=== PATIENT | female | born 2000 | race African-American/Black ===

== ENCOUNTER 2023-02-06 21:16 | Emergency (ER) | payer BC, SELFPAY ==
[2023-02-06 21:40] VITALS: BP 145/100; PULSE 116; RESP 20; TEMP 36.8; O2SAT 100
[2023-02-06 22:45] LABS: Appearance Urine Clear (Clear); Bacteria Urine None Seen /hpf; Bilirubin Urine Negative (Negative); Blood Urine 2+ (Negative); Color Urine Yellow (Yellow); Glucose Urine UA Negative (Negative); Ketones Urine Negative (Negative); Leukocyte Esterase Ur Negative LEU/UL (Negative); Nitrate Urine Negative (Negative); Non Pathogenic Casts 0-2; Protein Urine Trace mg/dL (Negative); RBC Urine 21-50 /hpf (0-2); Specific Grav Ur 1.019 (1.001-1.035); Squamous Epithelial Cell Urine Occasional /hpf (Few); WBC Urine 0-5 /hpf
[2023-02-06 22:47] LABS: Add Urine Microscopic? YES
--- NOTE | 2023-02-07 00:12 | ED.FEMALEGU ---
HPI - Female Genitourinary General Chief complaint: CHIP MUCKER Stated complaint: std check Time Seen by Provider: 02/06/23 23:48 Source: patient Mode of arrival: ambulatory Limitations: no limitations History of Present Illness HPI Narrative: This is a 22-year-old female who presents to the ED with chief complaint of possible exposure to STD that would have occurred 1 month ago. Patient reports that she had sexual intercourse with a male but does not have any confirmed infection. She states his friend told her that she needs to get tested. She expresses anxiety over this. She also has secondary complaint of a cyst to the left inner thigh that seems bigger than normal. Denies any fevers, chills, abdominal pain, urinary symptoms, vaginal discharge, vaginal pain, vaginal bleeding. Related Data Allergies Allergy/AdvReac Type Severity Reaction Status Date / Time No Known Allergies Allergy Verified 02/06/23 21:47 Review of Systems Review of Systems: All systems as dictated in HPI Exam Narrative: GENERAL: Well-appearing, well-nourished, and in no acute distress. HEAD: Normocephalic, atraumatic. EYES: PERRLA and EOMI. ENT: Nares clear, no rhinorrhea or epistaxis. Mucous membranes moist. Oropharynx without tonsillar hypertrophy exudate or other lesions. NECK: Supple. No adenopathy or masses. CHEST: No respiratory distress. Clear to auscultation. No wheezes rales or rhonchi HEART: Regular rate and rhythm. No murmur heard. Normal peripheral pulses. ABDOMEN: Soft, nontender, nondistended, normal active bowel sounds. MSK: Normal range of motion. No edema. SKIN: Warm, dry, no rash. There is a small area of soft tissue swelling to the left groin area. No overt skin changes. No tenderness. NEURO: Alert and oriented x3. No focal deficits. PSYCH: Normal mood and affect. : Pelvic exam done with female RN assembly line machine operator present There is scant amount of white vaginal discharge in the vaginal vault. Cervical os is intact. No other lesions present. Course Vital Signs Vital signs: Vital Signs Temperature 98.2 F 02/06/23 21:40 Pulse Rate 116 H 02/06/23 21:40 Respiratory Rate 20 02/06/23 21:40 Blood Pressure 145/100 H 02/06/23 21:40 Pulse Oximetry 100 02/06/23 21:40 Oxygen Delivery Room Air 02/06/23 21:40 Temperature 98.1 F 02/07/23 02:52 Pulse Rate 99 02/07/23 02:52 Respiratory Rate 14 02/07/23 02:52 Blood Pressure 113/80 02/07/23 02:52 Pulse Oximetry 98 02/07/23 02:52 Oxygen Delivery Room Air 02/06/23 21:40 MDM - Female Genitourinary MDM Narrative Medical decision making narrative: This is a 22-year-old female who presents to the ED for screening of STDs. She was told by a friend that her past partner may have an STD. Vitals are normal. Exam is benign. Pelvic exam reveals very scant amount of discharge in vaginal vault. STD tests are negative today. She has secondary concerns of a chronic cystic structure to her left medial thigh. I evaluated this and just does not appear to show any signs of infection or other emergent findings. Encouraged to follow-up with her bilingual account manager. Pt will be discharged in stable condition. Return precautions given and supportive measures discussed. Pt is understanding and agreeable with plan for discharge and follow-up with PCP/specialist Lab Data Labs: Lab Results 02/06/23 02/07/23 Range/Units 22:30 00:36 Urine Color Yellow (Yellow) Urine Appearance Clear (Clear) Urine pH 7.0 (5.0-9.0) Ur Specific [place] 1.019 (1.001-1.035) Urine Protein Trace (Negative) mg/dL Urine Glucose (UA) Negative (Negative) mg/dL Urine Ketones Negative (Negative) mg/dL Ur Blood (Man) 2+ H (Negative) Urine Nitrate Negative (Negative) Urine Bilirubin Negative (Negative) Urine Urobilinogen 1.0 (<2.0) mg/dL Leukocyte Esterase Rfl Negative (Negative) REDD/UL Urine RBC 21-50 H (0-2) /hpf Urine WBC 0
[2023-02-07 01:51] LABS: Trichomonas Vag PCR NOT DETECTED (NOT DETECTE)
[2023-02-07 02:15] LABS: Chlamydia trachomatis NOT DETECTED (NOT DETECTE); Neisseria gonorrhoeae PCR NOT DETECTED (NOT DETECTE)
[2023-02-07 02:52] VITALS: BP 113/80; PULSE 99; RESP 14; TEMP 36.7; O2SAT 98
== END 2023-02-07 02:52 | disposition home or self-care (01) ==
PROVIDERS: Emergency Medicine; Emergency Provider Physician Assistant
DX: Z20.2 Contact with and (suspected) exposure to infections with a predominantly sexual mode of transmission (principal)
CPT/HCPCS: 81001; 87491; 87591; 87661; 99284

== ENCOUNTER 2023-04-09 21:35 | Emergency (ER) | payer BC, SELFPAY ==
--- NOTE | ~2023-04-09 | XR_ITS ---
EXAMINATION: XR chest 1V portable DATE: 04/09/2023 23:00 INDICATION: Chest pain. TECHNIQUE: A single frontal view of the chest was obtained. COMPARISON: None. FINDINGS: There is no pneumonia, pleural effusion, or pneumothorax. The heart size is normal. IMPRESSION: 1. No acute cardiopulmonary disease. Reviewed, dictated and finalized at location E. ERCIAL CARPET INSTALLER
[2023-04-09 21:38] VITALS: BP 176/98; PULSE 91; RESP 26; TEMP 36.1; O2SAT 100
--- NOTE | 2023-04-09 21:41 | ECG_ITS ---
Measurements Intervals [place] Rate: 80 P: 43 [place]: 147 QRS: 60 QRSD: 86 T: 15 QT: 377 QTc: 437 Interpretive Statements SINUS RHYTHM NORMAL ECG NO PREVIOUS ECG AVAILABLE FOR COMPARISON Electronically Signed On 04-10-2023 7:09:47 TYPEWRITER ASSEMBLER by Tam Gonzalez D.O.
[2023-04-09 23:19] LABS: Basophils Percent Auto 0.4 % (0.2-1.2); Eosinophils Absolute Auto 0.1 K/mm3 (0-0.3); Eosinophils Percent Auto 0.9 % (0-4.4); Hemoglobin 11.1 g/dL (12.0-15.0); Immature Granulocyte Absolute 0.02 K/mm3 (0.00-0.031); Immature Granulocyte Percent A 0.3 % (0-0.5); Mean Corpuscular HGB Conc 30.8 g/dl (32-36); Mean Corpuscular Hemoglobin 26.4 pg (26-34); Mean Corpuscular Volume 85.5 fl (80-100); Mean Platelet Volume 9.6 fl (7.4-10.4); Monocytes Absolute Auto 0.4 K/mm3 (0.1-0.6); Monocytes Percent Auto 5.2 % (2.6-8.5); Neutrophils Absolute Auto 3.5 K/mm3 (1.3-6.7); Neutrophils Percent Auto 50.2 % (45.5-73.1); Platelet Count Result 284 k/mm3 (150-375); Red Blood Count 4.21 M/mm3 (4.2-5.4); Red Cell Distribution Width 13.5 % (11.5-14.5)
[2023-04-09 23:29] LABS: Prothrombin Time 13.8 Seconds (11.1-14.7)
[2023-04-09 23:30] LABS: Partial Thromboplastin Time 26.2 SECONDS (22.3-36.8)
[2023-04-09 23:30] LABS: Appearance Urine Clear (Clear); Bacteria Urine None Seen /hpf; Bilirubin Urine Negative (Negative); Blood Urine 2+ (Negative); Color Urine Yellow (Yellow); Glucose Urine UA Negative (Negative); Ketones Urine Negative (Negative); Leukocyte Esterase Ur Negative LEU/UL (Negative); Nitrate Urine Negative (Negative); Non Pathogenic Casts 0-2; Protein Urine Negative (Negative); Specific Grav Ur 1.015 (1.001-1.035); Squamous Epithelial Cell Urine None seen /hpf (Few); WBC Urine 0-5 /hpf; pH Urine 7.5 (5.0-9.0)
[2023-04-09 23:33] LABS: Alanine Aminotransferase 19 U/L (6-35); Albumin Level 4.2 g/dL (3.5-5.1); Alkaline Phosphatase 65 U/L (38-126); Anion Gap 3 mmol/L (8-16); Aspartate Amino Transferase 24 U/L (14-36); Bilirubin,Total 0.5 mg/dL (0.2-1.3); Blood Urea Nitrogen 10 mg/dL (7-17); Calcium 9.4 mg/dL (8.4-10.2); Carbon Dioxide 28 mmol/L (22-30); Chloride 104 mmol/L (98-107); Estimated CRCL calculation 178 ml/min; Estimated Glomerular Filt Rate > 60; Glucose 87 mg/dL (65-110); Lipase 109 U/L (23-300); Potassium 3.7 mmol/L (3.4-5.0); Sodium 135 mmol/L (137-145)
[2023-04-09 23:44] LABS: NT Pro B Type Natriuretic Pept 23 pg/mL (19.9-100); Troponin I < 0.012 ng/mL (0.000-0.034)
[2023-04-09 23:45] LABS: Add Urine Microscopic? YES
[2023-04-09 23:46] LABS: D Dimer 0.39 ug/mL (<0.48)
--- NOTE | 2023-04-10 01:04 | ED.GENADULT ---
HPI - General Adult General Chief complaint: Anxiety Stated complaint: chest pain/dizziness Time Seen by Provider: 04/09/23 21:53 History of Present Illness HPI narrative: Patient 23-year-old female who presents the emergency department with chief complaint of anxiety/chest pain. Patient reports that she started having some discomfort in her chest and started having tightness and started hyperventilating. Patient states she felt very anxious and felt like she was having a panic attack the patient states this feels different. Patient reports no significant past medical history denies family history for early cardiac disease Related Data Allergies Allergy/AdvReac Type Severity Reaction Status Date / Time No Known Allergies Allergy Verified 02/06/23 21:47 Review of Systems Review of Systems: A 10 system review of systems was completed on the patient and is negative except for what is stated in the HPI. Nursing and ancillary documentation was reviewed. Exam Narrative: GENERAL: Well-appearing, well-nourished, and in no acute distress. HEAD: Normocephalic, atraumatic. EYES: PERRLA and EOMI. ENT: Nares clear, no rhinorrhea or epistaxis. Mucous membranes moist. NECK: Supple. CHEST: Clear to auscultation. No respiratory distress. HEART: Regular rate and rhythm. No murmur heard. Normal peripheral pulses. ABDOMEN: Soft, nontender, nondistended, normal active bowel sounds. EXTREMITIES: Normal range of motion. No edema. SKIN: Warm, dry, no rash. NEURO: No focal deficits. Alert and oriented x3. PSYCH: Normal mood and affect. Course Vital Signs Vital signs: Vital Signs Temperature 36.1 C L 04/09/23 21:38 Pulse Rate 91 04/09/23 21:38 Respiratory Rate 26 H 04/09/23 21:38 Blood Pressure 176/98 H 04/09/23 21:38 Pulse Oximetry 100 04/09/23 21:38 Oxygen Delivery Room Air 04/09/23 21:38 Temperature 36.1 C L 04/09/23 21:38 Pulse Rate 91 04/09/23 21:38 Respiratory Rate 26 H 04/09/23 21:38 Blood Pressure 176/98 H 04/09/23 21:38 Pulse Oximetry 100 04/09/23 21:38 Oxygen Delivery Room Air 04/09/23 21:38 Medical Decision Making MDM Narrative Medical decision making narrative: Differential diagnosis includes ACS, chest wall pain, panic attack, Laboratory studies were obtained on the patient which showed a normal CBC normal CMP D-dimer was negative liver enzymes are within normal limits troponin was negative at 0-hour and 3-hour lipase was normal urinalysis showed no acute findings Chest x-ray showed no pneumothorax Vital Signs Vital Signs: Vital Signs Temperature 36.1 C L 04/09/23 21:38 Pulse Rate 91 04/09/23 21:38 Respiratory Rate 26 H 04/09/23 21:38 Blood Pressure 176/98 H 04/09/23 21:38 Pulse Oximetry 100 04/09/23 21:38 Oxygen Delivery Room Air 04/09/23 21:38 Temperature 36.1 C L 04/09/23 21:38 Pulse Rate 91 04/09/23 21:38 Respiratory Rate 26 H 04/09/23 21:38 Blood Pressure 176/98 H 04/09/23 21:38 Pulse Oximetry 100 04/09/23 21:38 Oxygen Delivery Room Air 04/09/23 21:38 Lab Data 04/09/23 23:11 04/09/23 23:11 Labs: Lab Results 04/09/23 04/09/23 04/10/23 Range/Units 22:58 23:11 01:11 WBC 7.0 (4.5-10.0) K/mm3 RBC 4.21 (4.2-5.4) M/mm3 Hgb 11.1 L (12.0-15.0) g/dL Hct 36.0 L (37.0-47.0) % MCV 85.5 (80-100) fl MCH 26.4 (26-34) pg MCHC 30.8 L (32-36) g/dl RDW 13.5 (11.5-14.5) % Plt Count 284 (150-375) k/mm3 MPV 9.6 (7.4-10.4) fl Immature Gran % (Auto) 0.3 (0-0.5) % Neut % (Auto) 50.2 (45.5-73.1) % Lymph % (Auto) 43.0 (18.3-44.2) % Desha % (Auto) 5.2 (2.6-8.5) % Eos % (Auto) 0.9 (0-4.4) % Baso % (Auto) 0.4 (0.2-1.2) % Lymph # (Auto) 3.00 (0.9-3.2) K/mm3 Desha # (Auto) 0.4 (0.1-0.6) K/mm3 Eos # (Auto) 0.1 (0-0.3) K/mm3 Baso # (Auto) 0.0 (0.0-0.1) K/mm3 Abs Immat Gran (auto) 0.02 (0.00-0.031
[2023-04-10] MEDS: KETOROLAC 30 MG/ML VIAL (*BKC) IM (01:17)
[2023-04-10 01:51] LABS: Troponin I < 0.012 ng/mL (0.000-0.034)
[2023-04-10 02:15] VITALS: BP 160/99; PULSE 95; RESP 16; O2SAT 98
== END 2023-04-10 02:16 | disposition home or self-care (01) ==
PROVIDERS: Emergency Provider Emergency Medicine
DX: R07.89 Other chest pain (principal)
CPT/HCPCS: 36415; 71045; 80053; 81001; 81025; 83690; 83880; 84484; 85025; 85380; 85610; 85730; 93005; 96372; 99284; J1885

== ENCOUNTER 2023-06-09 10:08 | Emergency (ER) | payer BC, SELFPAY ==
--- NOTE | 2023-06-09 11:13 | PC.NURSE ---
Pt ambulated to intake desk and asked how long the wait would be. This RN stated it was unknown and we do not give wait times. Pt then ambulated out the door.
== END 2023-06-09 11:29 | disposition left against medical advice (07) ==
LOC: ANHED 11:23
DX: Z53.21 Procedure and treatment not carried out due to patient leaving prior to being seen by health care provider (principal)
CPT/HCPCS: 99199

== ENCOUNTER 2023-08-11 09:39 | Emergency (ER) | payer BC, SELFPAY ==
[2023-08-11] VITALS (14 sets, daily range): BP systolic 149–164; BP diastolic 97–106; PULSE 64–95; RESP 11–25; TEMP 36.3; O2SAT 98–100
--- NOTE | ~2023-08-11 | XR_ITS ---
EXAMINATION: XR chest 2V DATE: 08/11/2023 10:10 INDICATION: Midline chest pain. TECHNIQUE: Frontal and lateral views of the chest were obtained. COMPARISON: Chest single view 04/09/2023 FINDINGS: There is no pneumonia, pleural effusion, or pneumothorax. The heart size is normal. IMPRESSION: 1. No acute cardiopulmonary disease. Reviewed, dictated and finalized at location A.
--- NOTE | 2023-08-11 09:40 | ECG_ITS ---
Measurements Intervals [place] Rate: 87 P: 69 [place]: 141 QRS: 57 QRSD: 81 T: 33 QT: 365 QTc: 440 Interpretive Statements SINUS RHYTHM NONSPECIFIC ST-T WAVE ABNORMALITY- ANT/INF LEADS BASELINE ARTIFACT- I, III, AVR, AVL, AVF, V1-V3 BORDERLINE ECG COMPARED TO ECG 04/09/2023 21:47:14 NO SIGNIFICANT CHANGES Electronically Signed On 08-11-2023 9:56:40 CDT by Tam Gonzalez D.O.
--- NOTE | 2023-08-11 09:52 | ED.CHESTPAIN ---
HPI - Chest Pain General Chief Complaint: Chest Pain Stated Complaint: right sided CP x 3 hrs Time Seen by Provider: 08/11/23 09:40 Source: patient Mode of arrival: ambulatory Limitations: no limitations History of Present Illness HPI narrative: Patient is a 23 y/o female who presents to the ED with c/o CP. Patient reports she was driving to work this morning around 730 am in the morning when she developed pain in her midsternal anterior chest. States pain has been constant since. Occasionally worse with inspiration. Denies aggravation with movement or exertion. She did report feeling mildly short of breath with exertion this morning. She contacted her primary care doctor and was referred to the ED for further evaluation. Patient reports she has had similar pain in the past and had negative work-ups. She mentions she was recently started on duloxetine last week for depression and anxiety. Patient denies having any triggers today or feeling anxious currently. Denies recent cough or cold symptoms, abdominal pain, nausea, vomiting, lower extremity pain or swelling, history of blood clots or previous heart issues. Related Data Allergies Allergy/AdvReac Type Severity Reaction Status Date / Time No Known Allergies Allergy Verified 02/06/23 21:47 Review of Systems Review of Systems: CONSTITUTIONAL: Denies fever, chills, or sweats. ENT: Denies rhinorrhea, congestion, sore throat. CARDIOVASCULAR: See HPI. RESPIRATORY: See HPI. GASTROINTESTINAL: Denies abdominal pain, nausea, vomiting. MUSCULOSKELETAL: Denies back pain, extremity pain, myalgia. NEUROLOGIC: Denies headache, dizziness, numbness, or weakness. All systems reviewed & are unremarkable except as noted in HPI and below PMFSH Past Medical History Medical History Anxiety Depression Exam Narrative: GENERAL: Well appearing, obese with BMI of 34.5, non-toxic, in no acute distress. HEAD: Normocephalic, atraumatic. RESPIRATORY: Airway patent, respirations nonlabored. Clear to auscultation bilaterally, no rales, rhonchi, wheezing. CARDIOVASCULAR: Regular rate and rhythm without murmurs, rubs, or gallops. ABDOMINAL: Soft, no tenderness throughout abdomen, nondistended. Normoactive BS. MUSCULOSKELETAL: Moves all extremities. No gross deformities. No calf tenderness. No lower extremity edema. SKIN: Warm, dry, normal color. NEURO: A&O X3. Speech clear. PSYCHIATRIC: Mildly anxiuos. Normal interaction. Course Vital Signs Vital signs: Vital Signs Temperature 97.4 F L 08/11/23 09:42 Pulse Rate 88 08/11/23 09:42 Respiratory Rate 20 08/11/23 09:42 Blood Pressure 164/104 H 08/11/23 09:42 Pulse Oximetry 100 08/11/23 09:42 Oxygen Delivery Room Air 08/11/23 09:42 Temperature 97.4 F L 08/11/23 09:42 Pulse Rate 64 08/11/23 10:31 Respiratory Rate 15 08/11/23 10:31 Blood Pressure 153/102 H 08/11/23 10:31 Pulse Oximetry 100 08/11/23 10:31 Oxygen Delivery Room Air 08/11/23 09:42 MDM - Chest Pain MDM Narrative Medical decision making narrative: Patient presented to ED with several hour onset of midsternal chest pain. Vital signs are stable upon arrival. Patient in no acute distress. EKG without concerning ischemic changes. Baseline troponin is negative. Chest x-ray is clear. D-dimer obtained as patient reporting mild dyspnea with exertion, pain w/ inspiration, D-dimer was WNL. Patient otherwise PERC negative. Low suspicion for acute VTE. No evidence of DVT on exam. Remainder basic laboratory studies are unremarkable. Stable electrolytes, normal kidney and liver function. Lipase within normal limits. HEART score = 1 based on BMI, elevated BP. 3HR Troponin also resulted undetectable. Patient felt to be low risk for ACS at this time, will be discharged with outpatient follow-up. Patient in agreement this plan and feels comfortable with discharge home. Discussed
[2023-08-11 09:59] LABS: Basophils Percent Auto 0.5 % (0.2-1.2); Eosinophils Percent Auto 0.7 % (0-4.4); Hematocrit 37.7 % (37.0-47.0); Hemoglobin 11.4 g/dL (12.0-15.0); Immature Granulocyte Absolute 0.01 K/mm3 (0.00-0.031); Immature Granulocyte Percent A 0.2 % (0-0.5); Lymphocytes Absolute Auto 1.67 K/mm3 (0.9-3.2); Lymphocytes Percent Auto 29.3 % (18.3-44.2); Mean Corpuscular HGB Conc 30.2 g/dl (32-36); Mean Corpuscular Hemoglobin 26.3 pg (26-34); Mean Corpuscular Volume 86.9 fl (80-100); Mean Platelet Volume 9.6 fl (7.4-10.4); Monocytes Absolute Auto 0.4 K/mm3 (0.1-0.6); Monocytes Percent Auto 7.6 % (2.6-8.5); Neutrophils Absolute Auto 3.5 K/mm3 (1.3-6.7); Neutrophils Percent Auto 61.7 % (45.5-73.1); Platelet Count Result 276 k/mm3 (150-375); Red Blood Count 4.34 M/mm3 (4.2-5.4); Red Cell Distribution Width 13.6 % (11.5-14.5); White Blood Count 5.7 K/mm3 (4.5-10.0)
[2023-08-11 10:09] LABS: Alanine Aminotransferase 16 U/L (6-35); Albumin Level 4.2 g/dL (3.5-5.1); Alkaline Phosphatase 70 U/L (38-126); Anion Gap 4 mmol/L (8-16); Aspartate Amino Transferase 29 U/L (14-36); Bilirubin,Total 0.6 mg/dL (0.2-1.3); Blood Urea Nitrogen 10 mg/dL (7-17); Calcium 9.6 mg/dL (8.4-10.2); Carbon Dioxide 27 mmol/L (22-30); Chloride 106 mmol/L (98-107); Estimated CRCL calculation 146 ml/min; Estimated Glomerular Filt Rate > 60; Glucose 100 mg/dL (65-110); Lipase 78 U/L (23-300); Potassium 4.4 mmol/L (3.4-5.0); Sodium 137 mmol/L (137-145)
[2023-08-11 10:10] LABS: Prothrombin Time 14.1 Seconds (11.1-14.7)
[2023-08-11 10:11] LABS: Partial Thromboplastin Time 27.7 SECONDS (22.3-36.8)
[2023-08-11] MEDS: ASPIRIN 81 MG CHEWABLE TABLET 324 MG PO (10:12)
[2023-08-11 10:21] LABS: Troponin I < 0.012 ng/mL (0.000-0.034)
[2023-08-11 11:12] LABS: D Dimer 0.44 ug/mL (<0.48)
--- NOTE | 2023-08-11 12:26 | ECG_ITS ---
Measurements Intervals [place] Rate: 77 P: 69 [place]: 143 QRS: 52 QRSD: 79 T: 1 QT: 394 QTc: 448 Interpretive Statements SINUS RHYTHM NONSPECIFIC ST-T WAVE ABNORMALITY- INFERIOR LEADS BASELINE ARTIFACT- I, II, III, AR, AVF BORDERLINE ECG COMPARED TO ECG 08/11/2023 09:44:56 NO SIGNIFICANT CHANGES Electronically Signed On 08-11-2023 12:50:15 CDT by Tam Gonzalez D.O.
[2023-08-11 12:58] LABS: Troponin I < 0.012 ng/mL (0.000-0.034)
== END 2023-08-11 13:36 | disposition home or self-care (01) ==
PROVIDERS: Emergency Medicine; Emergency Provider Physician Assistant
DX: R07.89 Other chest pain (principal); F41.9 Anxiety disorder, unspecified; F32.A Depression, unspecified; R94.31 Abnormal electrocardiogram [ECG] [EKG]
CPT/HCPCS: 36415; 71046; 80053; 83690; 84484; 85025; 85380; 85610; 85730; 93005; 99284; A9270

== ENCOUNTER 2023-08-26 15:33 | Emergency (ER) | payer BC, SELFPAY ==
[2023-08-26 15:45] VITALS: BP 139/64; PULSE 97; RESP 20; TEMP 36.6; O2SAT 100
--- NOTE | 2023-08-26 15:50 | ED.FEMALEGU ---
HPI - Female Genitourinary General Chief complaint: Urogenital-Female <Jazmine Wheat PA-C - Last Filed: 08/26/23 18:53> Stated complaint: uti/sti <Jazmine Wheat PA-C - Last Filed: 08/26/23 18:53> Time Seen by Provider: 08/26/23 15:45 <Jazmine Wheat PA-C - Last Filed: 08/26/23 18:53> Focused HPI: This is a 23-year-old female that presents to the emergency department for vaginal irritation. Ongoing over the last couple of days. Would like to be tested for STDs. She additionally endorses she thinks she has foot fungus, and would like this treated. Denies fevers, vomiting, flank pain, or dysuria. GENERAL: Well-appearing, well-nourished, and in no acute distress. HEAD: Normocephalic, atraumatic. CHEST: Clear to auscultation. ?No respiratory distress. HEART: Regular rate and rhythm.? NEURO: ?Alert and oriented x3. Patient screened in triage and initial orders placed.? ?Additional care and disposition to be based upon?diagnostic testing and treatment. <Jazmine Wheat PA-C - Last Filed: 08/26/23 18:53> Source: patient <Cyrus Hoover MD - Last Filed: 08/26/23 18:03> History of Present Illness HPI Narrative: 23-year-old otherwise healthy here with complaints of vaginal bleed discharge for past 2-3 days wanted STI check. She also complains of fungal infection in between her toes. She denies any fever or chills . <Cyrus Hoover MD - Last Filed: 08/26/23 18:03> MD elicited complaint: vaginal discharge <Cyrus Hoover MD - Last Filed: 08/26/23 18:03> Pertinent past history: STI/STD <Cyrus Hoover MD - Last Filed: 08/26/23 18:03> Onset (ago): day(s) (2) <Cyrus Hoover MD - Last Filed: 08/26/23 18:03> Location of symptoms: external genitalia <Cyrus Hoover MD - Last Filed: 08/26/23 18:03> Severity: mild <Cyrus Hoover MD - Last Filed: 08/26/23 18:03> Female Urogenital Radiation: Non-Radiating <Cyrus Hoover MD - Last Filed: 08/26/23 18:03> Exacerbating factors: none <Cyrus Hoover MD - Last Filed: 08/26/23 18:03> Relieving factors: none <Cyrus Hoover MD - Last Filed: 08/26/23 18:03> Associated symptoms: denies other symptoms <Cyrus Hoover MD - Last Filed: 08/26/23 18:03> Related Data Allergies/Adverse reactions: Allergies Allergy/AdvReac Type Severity Reaction Status Date / Time No Known Allergies Allergy Verified 02/06/23 21:47 <Jazmine Wheat PA-C - Last Filed: 08/26/23 18:53> Review of Systems Review of Systems: All systems reviewed & are unremarkable except as noted in HPI and below <Cyrus Hoover MD - Last Filed: 08/26/23 18:03> Constitutional: Constitutional: Reports no additional constitutional complaints <Cyrus Hoover MD - Last Filed: 08/26/23 18:03> Eyes: Eyes: Reports no additional eye complaints <Cyrus Hoover MD - Last Filed: 08/26/23 18:03> ENT: Reports system reviewed and no additional complaints, except as documented <Cyrus Hoover MD - Last Filed: 08/26/23 18:03> Cardiovascular: Cardiovascular: Reports no additional cardiovascular complaints <Cyrus Hoover MD - Last Filed: 08/26/23 18:03> Respiratory: Respiratory: Reports no additional respiratory complaints <Cyrus Hoover MD - Last Filed: 08/26/23 18:03> Gastrointestinal: Gastrointestinal: Reports no additional gastrointestinal complaints <Cyrus Hoover MD - Last Filed: 08/26/23 18:03> Genitourinary: Genitourinary: Reports as per HPI <Cyrus Hoover MD - Last Filed: 08/26/23 18:03> Musculoskeletal: Musculoskeletal: Reports no additional musculoskeletal complaints <Cyrus Hoover MD - Last Filed: 08/26/23 18:03> Neurologic: Reports system reviewed and no additional complaints, except as documented <Cyrus Hoover MD - Last Filed: 08/26/23 18:03> [facility] Past Medical History Medical History: Medical History Anxiety Depressi
[2023-08-26 16:13] LABS: Bacteria Urine 1+ /hpf; Non Pathogenic Casts 0-2; Squamous Epithelial Cell Urine Many /hpf (Few)
[2023-08-26 16:30] LABS: Appearance Urine Clear (Clear); Color Urine Yellow (Yellow)
[2023-08-26 16:31] LABS: Bilirubin Urine Negative (Negative); Blood Urine 1+ (Negative); Glucose Urine UA Negative (Negative); Ketones Urine Negative (Negative); Leukocyte Esterase Ur Negative LEU/UL (Negative); Nitrate Urine Negative (Negative); Protein Urine 1+ mg/dL (Negative); pH Urine 7.5 (5.0-9.0)
[2023-08-26 16:32] LABS: Add Urine Microscopic? YES
[2023-08-26 17:30] LABS: Trichomonas Vag PCR NOT DETECTED (NOT DETECTE)
[2023-08-26 17:55] LABS: Chlamydia trachomatis NOT DETECTED (NOT DETECTE); Neisseria gonorrhoeae PCR NOT DETECTED (NOT DETECTE)
== END 2023-08-26 18:13 | disposition home or self-care (01) ==
PROVIDERS: Physician Assistant; Emergency Provider Family Medicine
DX: N76.0 Acute vaginitis (principal); F41.9 Anxiety disorder, unspecified; F32.A Depression, unspecified
CPT/HCPCS: 81001; 81025; 87086; 87088; 87491; 87591; 87661; 99284